=== PATIENT | male | born 1980 ===

== ENCOUNTER 2022-11-30 08:48 | Inpatient (IN) | payer MEDICARE, MEDICAID ==
[~2022-11-30] VITALS: Ht 182.9 cm; Wt 100.2 kg
[2022-11-30 09:45] LABS: BASOPHILS % (AUTO) 0.4 % (0.0-2.0); EOSINOPHILS % (AUTO) 1.2 % (1.0-6.0); HEMATOCRIT 39.2 % (41-53); HEMOGLOBIN 12.5 g/dL (13.5-17.5); LYMPHOCYTES % (AUTO) 15.6 % (22.0-44.0); MEAN CORPUSCULAR HEMOGLOBIN 28.6 pg (26.0-34.0); MEAN CORPUSCULAR VOLUME 89 fL (80-100); MONOCYTES # (AUTO) 0.6 K/uL (0.1-1.0); MONOCYTES % (AUTO) 4.7 % (2.0-9.0); NEUTROPHILS # (AUTO) 9.9 K/uL (1.8-7.7); NEUTROPHILS % (AUTO) 78.1 % (40.0-70.0); PLATELET COUNT (AUTO) 520 K/uL (150-450); RED BLOOD CELL COUNT(AUTO) 4.39 MIL/uL (4.50-5.90); RED CELL DISTRIBUTION WIDTH 14.1 % (11.5-14.5)
[2022-11-30 09:58] LABS: ANION GAP 15 mmol/L (8-16); CALCIUM, TOTAL 9.6 mg/dL (8.8-10.5); CARBON DIOXIDE 26 mmol/L (22-29); CHLORIDE 100 mmol/L (98-107); CREATININE 0.98 mg/dL (0.60-1.30); GLOMERULAR FILTR. RATE CALC > 60 mL/min (>60); GLUCOSE,RANDOM 100 mg/dL (70-110); POTASSIUM 4.3 mmol/L (3.5-5.1); SODIUM SERUM 141 mmol/L (136-145)
[2022-11-30 10:04] LABS: ALANINE AMINOTRANSFERASE 46 U/L (12-78); ALBUMIN 3.7 g/dL (3.4-5.0); ALKALINE PHOSPHATASE 105 U/L (46-116); ASPARTATE AMINOTRANSFERASE 33 U/L (15-37); BILIRUBIN,TOTAL 0.2 mg/dL (0.1-1.0); TOTAL PROTEIN, SERUM 8.3 g/dL (6.4-8.2)
[2022-11-30] MEDS ORDERED: HALOPERIDOL 5 MG TABLET PO ONE (10:15)
[2022-11-30] MEDS ORDERED: DiphenhydrAMINE HCL 25 MG CAPSULE PO ONE (10:15)
[2022-11-30] MEDS ORDERED: LORazepam 2 MG TABLET PO ONE (10:15)
[2022-11-30 10:31] LABS: COVID AG,FIA SOURCE NASOPHARYNGEAL
[2022-11-30] MEDS ORDERED: ACETAMINOPHEN 500 MG TABLET PO ONE (10:45)
[2022-11-30 10:54] LABS: AMPHET/METH SCREEN,URINE NEGATIVE (NEGATIVE); BARBITURATE SCREEN, URINE NEGATIVE (NEGATIVE); BENZODIAZEPINES SCREEN,URINE NEGATIVE (NEGATIVE); CANNABINOID SCREEN,URINE POSITIVE (NEGATIVE); COCAINE SCREEN,URINE NEGATIVE (NEGATIVE); METHADONE SCREEN, URINE NEGATIVE (NEGATIVE); OPIATE SCREEN,URINE NEGATIVE (NEGATIVE); PHENCYCLIDINE SCREEN,URINE POSITIVE (NEGATIVE)
[2022-11-30] MEDS: LORazepam 2 MG TABLET PO PRN ×2 (16:21→23:44)
[2022-11-30] MEDS: HALOPERIDOL 5 MG TABLET PO PRN (16:22)
[2022-11-30] MEDS ORDERED: MAGNESIUM HYDROXIDE SUSPENSION 30 ML UDCUP PO PRN (23:30)
[2022-11-30] MEDS ORDERED: ONDANSETRON HCL 4 MG TABLET PO PRN (23:30)
[2022-11-30] MEDS ORDERED: ALBUTEROL SULFATE HFA 90 MCG/PUFF 8 GM INHALER IH PRN (23:30)
[2022-11-30] MEDS ORDERED: IBUPROFEN 600 MG TABLET PO PRN (23:30)
[2022-11-30] MEDS ORDERED: OMEPRAZOLE 20 MG CAPSULE PO PRN (23:30)
[2022-11-30] MEDS ORDERED: DOCUSATE SODIUM 100 MG CAPSULE PO PRN (23:30)
[2022-11-30] MEDS ORDERED: CloNIDine HCL 0.1 MG TABLET PO PRN (23:30)
[2022-11-30] MEDS ORDERED: LOPERAMIDE HCL 2 MG CAPSULE PO PRN (23:30)
[2022-11-30] MEDS ORDERED: MAG HYDROX/AL HYDROX/SIMETH ES 30 ML SUSPENSION UDCUP PO PRN (23:30)
[2022-11-30] MEDS ORDERED: BACITRACIN 28 GM OINTMENT TP PRN (23:30)
[2022-11-30] MEDS ORDERED: PETROLATUM,WHITE 28 GM JELLY TP PRN (23:30)
[2022-11-30] MEDS ORDERED: BENZOCAINE/MENTHOL LOZENGE PO PRN (23:30)
[2022-11-30] MEDS: ZOLPIDEM TARTRATE 10 MG TABLET PO PRN (23:45)
[2022-11-30 23:56] VITALS: BP 135/88; PULSE 90; RESP 18; TEMP 97.1
[2022-12-01] MEDS ORDERED: NICOTINE 21 MG/24 HOUR PATCH TD PRN (07:00)
[2022-12-01] MEDS: HALOPERIDOL 5 MG TABLET PO PRN ×2 (08:07→19:15)
[2022-12-01] MEDS: LORazepam 2 MG TABLET PO PRN ×2 (08:07→19:16)
[2022-12-01 08:10] VITALS: BP 112/78; PULSE 90; RESP 18; TEMP 97.1
[2022-12-01 11:18] VITALS: BP 118/76; PULSE 88; RESP 18
[2022-12-01] MEDS: ACETAMINOPHEN 325 MG TABLET PO PRN (11:23)
[2022-12-01 12:23] VITALS: RESP 17
[2022-12-01 15:10] VITALS: RESP 18
[2022-12-01 16:10] VITALS: RESP 18
[2022-12-01] MEDS: LITHIUM CARBONATE 300 MG CAPSULE PO SCH (20:35)
[2022-12-01] MEDS: DIVALPROEX SODIUM 500 MG DR TABLET PO SCH (20:36)
[2022-12-01] MEDS: RisperiDONE 1 MG TABLET PO SCH (20:36)
[2022-12-01 21:23] VITALS: BP 128/71; PULSE 96; RESP 18; TEMP 97.6
[2022-12-01] MEDS: ZOLPIDEM TARTRATE 10 MG TABLET PO PRN (21:40)
[2022-12-02] MEDS: HALOPERIDOL 5 MG TABLET PO PRN (03:36)
[2022-12-02] MEDS: LORazepam 2 MG TABLET PO PRN ×2 (03:36→11:55)
[2022-12-02 05:17] VITALS: BP 118/75; PULSE 85; RESP 18; TEMP 97.2
[2022-12-02] MEDS: ACETAMINOPHEN 325 MG TABLET PO PRN (05:17)
[2022-12-02 07:52] LABS: EOSINOPHILS % (AUTO) 2.7 % (1.0-6.0); HEMATOCRIT 38.7 % (41-53); HEMOGLOBIN 12.8 g/dL (13.5-17.5); LYMPHOCYTES % (AUTO) 20.3 % (22.0-44.0); MEAN CORPUSCULAR HEMOGLOBIN 29.3 pg (26.0-34.0); MEAN CORPUSCULAR HGB CONC 32.9 G/dL (31.0-37.0); MEAN CORPUSCULAR VOLUME 89 fL (80-100); MONOCYTES # (AUTO) 0.6 K/uL (0.1-1.0); MONOCYTES % (AUTO) 5.8 % (2.0-9.0); NEUTROPHILS % (AUTO) 70.2 % (40.0-70.0); PLATELET COUNT (AUTO) 379 K/uL (150-450); RED BLOOD CELL COUNT(AUTO) 4.36 MIL/uL (4.50-5.90); RED CELL DISTRIBUTION WIDTH 13.7 % (11.5-14.5)
[2022-12-02 08:07] LABS: HEMOGLOBIN A1C 5.5 % (3.8-5.6)
[2022-12-02 08:15] LABS: ALANINE AMINOTRANSFERASE 37 U/L (12-78); ALBUMIN 3.1 g/dL (3.4-5.0); ALKALINE PHOSPHATASE 74 U/L (46-116); ANION GAP 3 mmol/L (8-16); ASPARTATE AMINOTRANSFERASE 16 U/L (15-37); BILIRUBIN,TOTAL 0.2 mg/dL (0.1-1.0); CARBON DIOXIDE 31 mmol/L (22-29); CHLORIDE 102 mmol/L (98-107); CHOL/HDL RATIO 3.4 (4.2-7.3); CHOLESTEROL 131 mg/dL (131-200); CREATININE 0.71 mg/dL (0.60-1.30); GLOMERULAR FILTR. RATE CALC > 60 mL/min (>60); GLUCOSE,RANDOM 98 mg/dL (70-110); HDL CHOLESTEROL 38 mg/dL (40-60); LDL CHOL (CALC.) 68 mg/dL (0-130); PHOSPHORUS 4.1 mg/dL (2.5-4.9); POTASSIUM 4.3 mmol/L (3.5-5.1); SODIUM SERUM 136 mmol/L (136-145); THYROID STIMULATING HORMONE 0.71 uIU/mL (0.36-3.74); TOTAL PROTEIN, SERUM 7.1 g/dL (6.4-8.2); TRIGLYCERIDES 127 mg/dL (15-150)
[2022-12-02] MEDS: LITHIUM CARBONATE 300 MG CAPSULE PO SCH (08:26)
[2022-12-02] MEDS: DIVALPROEX SODIUM 500 MG DR TABLET PO SCH (08:26)
[2022-12-02] MEDS: RisperiDONE 1 MG TABLET PO SCH (08:26)
[2022-12-02 08:32] VITALS: RESP 18
== END 2022-12-02 15:52 | disposition home or self-care (01) | DRG 885 ==
LOC: EMS 08:49 → 3EC 22:40
PROVIDERS: ADMIT Psychiatry & Neurology Psychiatry; ATTEND Psychiatry & Neurology Psychiatry
DX: F25.9 Schizoaffective disorder, unspecified (principal); R45.851 Suicidal ideations; G47.00 Insomnia, unspecified; F41.9 Anxiety disorder, unspecified; Z20.822 Contact with and (suspected) exposure to COVID-19; F12.10 Cannabis abuse, uncomplicated; F17.200 Nicotine dependence, unspecified, uncomplicated; K59.00 Constipation, unspecified; Z59.00 Homelessness unspecified; Z91.148 Patient's other noncompliance with medication regimen for other reason; Z88.0 Allergy status to penicillin
CPT/HCPCS: 80053; 80061; 80307; 83036; 83735; 84100; 84443; 85025; 87081; 99285; G0480